=== PATIENT | female | born 1985 | race Caucasian/White ===

== ENCOUNTER 2020-05-17 14:27 | Inpatient (IN) | payer MEDICAID ==
[~2020-05-17] VITALS: Ht 172.7 cm; Wt 68.0 kg
--- NOTE | 2020-05-17 14:30 | NUR ---
Patient brought in by RA 88, patient picked up by MARCELO for "rolling around on the street"
[2020-05-17] MEDS ORDERED: OLANZAPINE 10 MG VIAL IM ONE ×2 (14:45→14:48)
--- NOTE | 2020-05-17 14:55 | NUR ---
NURSING STEAM BOX HAND NOTIFIED FOR NEED OF 1:1 SITTER.
--- NOTE | 2020-05-17 15:00 | NUR ---
Covid swab and urine sample sent to lab at this time
--- NOTE | 2020-05-17 15:00 | NUR ---
PT PLACED ON 5150 HOLD BY [employer] (ZAID,DULCE).
[2020-05-17 15:01] LABS: BASOPHILS % (AUTO) 0.2 % (0.0-2.0); EOSINOPHILS % (AUTO) 0.3 % (0.0-7.0); HEMATOCRIT 34.5 % (31.2-41.9); HEMOGLOBIN 11.8 g/dL (10.9-14.3); MEAN CORPUSCULAR HEMOGLOBIN 34.1 uug (24.7-32.8); MEAN CORPUSCULAR HGB CONC 34 g/dL (32.3-35.6); MEAN CORPUSCULAR VOLUME 99.5 fL (75.5-95.3); MONOCYTES # (AUTO) 0.5 K/uL (2.0-10.0); MONOCYTES % (AUTO) 6.7 % (0.0-11.0); NEUTROPHILS # (AUTO) 6.2 K/uL (1.8-8.9); NEUTROPHILS % (AUTO) 79.8 % (38.5-71.5); PLATELET COUNT (AUTO) 103 K/uL (179-408); RED BLOOD CELL COUNT(AUTO) 3.47 MIL/uL (3.63-4.92); WHITE BLOOD COUNT (AUTO) 7.7 K/uL (3.8-11.8)
[2020-05-17 15:07] LABS: ETHANOL < 3 MG/DL (0-0)
[2020-05-17 15:11] LABS: ALANINE AMINOTRANSFERASE 52 U/L (14-59); ALKALINE PHOSPHATASE 55 U/L (50-136); ASPARTATE AMINOTRANSFERASE 54 U/L (15-37); BILIRUBIN,DIRECT 0.2 mg/dL (0.0-0.2); BILIRUBIN,TOTAL 0.5 mg/dL (0.2-1.0); CARBON DIOXIDE 27 mmol/L (21-32); CHLORIDE 103 mmol/L (98-107); CREATININE 1.1 mg/dL (0.6-1.3); GLUCOSE 151 mg/dL (74-106); TOTAL PROTEIN, SERUM 7.5 g/dL (6.4-8.2); UREA NITROGEN, BLOOD 14 mg/dL (7-18)
[2020-05-17 15:12] LABS: ACETAMINOPHEN < 2.0 ug/mL (10-30)
[2020-05-17 15:12] LABS: *BLOOD, URINE NEGATIVE (NEGATIVE); *COLOR,URINE YELLOW (YELLOW); *KETONES,URINE 1+ (NEGATIVE); LEUKOCYTE ESTERASE ,URINE NEGATIVE (NEGATIVE); NITRITE, URINE NEGATIVE (NEGATIVE); UGLUCOSE NEGATIVE (NEGATIVE)
[2020-05-17 15:14] LABS: POTASSIUM 2.5 mmol/L (3.5-5.1)
[2020-05-17] MEDS ORDERED: POTASSIUM CHLORIDE 50 ML IV SCH (15:15)
[2020-05-17] MEDS ORDERED: POTASSIUM CHLORIDE 20 MEQ TAB.PRT.SR PO ONE (15:15)
[2020-05-17 15:18] LABS: THYROID STIMULATING HORMONE 0.812 mIU/mL (0.358-3.740)
[2020-05-17 15:19] LABS: *BILIRUBIN,URIN 1+ (NEGATIVE)
[2020-05-17 15:22] LABS: *AMPHETAMINE, URINE NEGATIVE (NEGATIVE); *CANNABINOID, URINE NEGATIVE (NEGATIVE); *COCCAINE, URINE NEGATIVE (NEGATIVE); *OPIATE, URINE POSITIVE (NEGATIVE); *PHENCYCLIDINE SCREEN,URINE NEGATIVE (NEGATIVE)
[2020-05-17 15:25] LABS: *CLARITY,URINE HAZY (CLEAR); BACTERIA,URINE FEW /HPF (NONE SEEN); SQUAMOUS EPITHELIAL CELL,UR FEW /HPF (NONE SEEN)
[2020-05-17 15:26] LABS: URINE AMORPHOUS PHOSPHATES MODERATE /HPF
[2020-05-17] MEDS ORDERED: POTASSIUM CHLORIDE 50 ML ONE (15:40)
[2020-05-17] MEDS ORDERED: POTASSIUM CHLORIDE 20 MEQ TAB.PRT.SR ONE (15:40)
--- NOTE | 2020-05-17 16:14 | NUR ---
potassium IV infusion stopped at 1614
[2020-05-17] MEDS: MAGNESIUM SULFATE/D5W 100 ML IV SCH ×2 (16:44→19:30)
[2020-05-17] MEDS ORDERED: MAGNESIUM SULFATE/D5W 200 ML ONE (16:50)
--- NOTE | 2020-05-17 18:04 | NUR ---
first bag of IV magnesium in progress, endorsed to Mikala, patient going to room 314 under the care of MD Alves, transfered via wheelchair
--- NOTE | 2020-05-17 18:10 | NUR ---
Received patient in wheelchair, Awake alert and oriented times 4. Patient is Hong Konger speaking but understands some Afghan. Patient is on room air. Patient belongings list completed, signed and placed in chart. No sign of distress noted. Patient states she is homeless. Skin is intact. Patient has 1:1 sitter. Safety precautions are in place. Will endorse to oncoming nurse.
[2020-05-17 18:38] VITALS: BP 118/78
[2020-05-17 19:30] VITALS: BP 107/74
--- NOTE | 2020-05-17 20:22 | NUR ---
Patient in bed .AALOx4.Calm and pleasant .On RA.Denies pain. No s/s of distress noted. Denies SI or hurting others.Ambulates to bathroom. Iv on AC 20 g with 2nd bag of magnesium IV running well .No a/r noted.1:1 sitter at bedside for safety. MD Alves made aware of patient's admission with new order given ,noted and carried out.VSS
[2020-05-17] MEDS ORDERED: POTASSIUM CHLORIDE IV SCH (20:30)
[2020-05-17] MEDS ORDERED: LACTATED RINGERS IV SCH (20:30)
[2020-05-17] MEDS ORDERED: OLANZAPINE 10 MG VIAL IM PRN (20:30)
[2020-05-17] MEDS ORDERED: ONDANSETRON 4 MG/2 ML VIAL IV PRN (20:30)
[2020-05-17] MEDS ORDERED: HYDROCODONE/APAP 10-325 MG TABLET PO PRN (20:30)
[2020-05-17] MEDS: POTASSIUM CHLORIDE 40 MEQ in IV NS 1000 ML 1,000 ML IV PRN (22:38)
[2020-05-18 04:25] VITALS: BP 106/72
--- NOTE | 2020-05-18 06:58 | NUR ---
Patient slept well.No Bizarre behavior through out the shift.IVF Ns with KCL 40 meq running well at 100 ml/hr.Tolerated well.1:1 remain at bedside.All needs anticipated and met accordingly.VSS.Endorsed to oncoming shift.
[2020-05-18 07:17] LABS: BILIRUBIN,TOTAL 0.5 mg/dL (0.2-1.0); CREATININE 0.8 mg/dL (0.6-1.3); PHOSPHOROUS 3.8 mg/dL (2.5-4.9); POTASSIUM 3.4 mmol/L (3.5-5.1); TOTAL PROTEIN, SERUM 5.7 g/dL (6.4-8.2)
[2020-05-18] MEDS: POTASSIUM CHLORIDE 40 MEQ in IV NS 1000 ML 1,000 ML IV PRN (09:08)
[2020-05-18 12:10] VITALS: BP 131/65
[2020-05-18 15:38] VITALS: BP 109/65
[2020-05-18] MEDS: HYDROCODONE/APAP 10-325 MG TABLET PO PRN ×2 (15:52→20:20)
[2020-05-18 20:04] VITALS: BP 116/71
[2020-05-19 04:16] VITALS: BP 101/47
--- NOTE | 2020-05-19 07:02 | NUR ---
End of Shift Report: Patient is AOx4, no bizarre behavior throughout the shift, no acute distress, vital signs stable. Patient slept most of the night. 1:1 remain at bedside. All needs anticipated and met accordingly. Will endorse to oncoming shift.
--- NOTE | 2020-05-19 10:54 | NUR ---
SW Consult: Patient is a 35-year-old female who was brought to [facility] on 05/18/19. She is on a 5150 hold for running into traffic. Patient appeared alert and oriented x4 (self, situation, place, time). Patient appeared with euthymic mood. Patient appeared anxious about her current situation. Patient was cooperative while this SW was conducting the assessment. Patient currently has a work visa. Patient has no family and reported she only has friends. Patient has various sources of income; however, specifics were not disclosed. Patient was able to state why she was brought to the hospital. She stated she has active auditory hallucinations, the voices are telling her to run into traffic. She expressed she has been diagnosed with bipolar disorder and anxiety for many years. This SW assessed for SI. Patient currently denies suicidal ideation. Patient reported her psychiatrist doctor Fletcher ([phone]) has prescribed her Zyprexa 5mg Daily and Ativan 1mg. Patient reported she has been off her anti-psychotic medications for about a year. Patient expressed she is a substance abuser and is in AA program, unable to give more information. She has been in and out of hospitals: [facility] and [facility]. This SW conducted brief substance abuse intervention and patient reported that she drinks alcohol daily and has been drinking on and off. This SW will provide substance abuse resources: [facility] ([phone]), [facility] ([phone]), and [facility] ([phone]). This SW assessed for patients current living situation she shared she lives at [address] [place] [address]. She expressed that she lives with her friend Vivienne ([phone]) who financially helps patient. She shared she was at a SNF around December-January 2020 in [place], she was unable to recall SNFs name. Patient reported she would want to go back home upon discharge located at [address] [place] [address]. This SW provided mental health resources, substance abuse resources, and medical clinic resources if needed. This SW provided resources for Mental Health Referrals, [facility] Crisis Line, ( ), National Suicide Prevention Lifeline; ( ), [facility] Substance Abuse Helpline, ( ), [facility], ([phone]), and [facility] ([phone]). [facility] provided health care clinics: [facility]; ([phone]), [facility]; ([phone]), and [facility]; ([phone]).
--- NOTE | 2020-05-19 11:36 | NUR ---
SW Doctor Contact: This SW contacted Dr. Melchor to verify when he will see patient. Dr. Melchor stated he will see patient during the afternoon.
--- NOTE | 2020-05-19 11:46 | NUR ---
Investigator Fraud note: Per patient's face sheet, patient is self-pay. This SW contacted [employer] patient uniforms sales representative Jada Lara, , who stated that patient had already been screened for [employer] benefits. Jada stated that patient did have active [employer]. Jada stated that financial counselor/admissions had been informed.
[2020-05-19 12:00] VITALS: BP 125/69
--- NOTE | 2020-05-19 12:01 | NUR ---
SW Follow-up Note: SW went to meet patient upstairs because patient was asking for additional resources. Patient expressed to this SW if she were to go back to her friends marcello Palafox ([phone]) located at [address] [place] [address], can she get additional resources for alf. This SW gave pt alf programs: [facility]; ([phone]), [facility] at [facility]; ([phone]), and [facility]; ([phone]). Patient signed the homeless waiver upon discharge and a copy was placed in the chart. Homeless resources were provided and include 211 information line for shelters and homeless resources. A copy of all resources given to patient was also placed in the chart. This SW notified charge nurse.
--- NOTE | 2020-05-19 12:07 | NUR ---
SW Note: Nurse Rebeka reported to this SW that patient reported on 05/18/2020 that she feels unsafe to go back home with Vivienne ([phone]). This SW and Rebeka met with patient and patient stated "No, my brain has been on and off and it is not functioning well". She reported "I feel safe going back home with Vivienne". Patient was adamant about returning back home with Vivienne. This SW created a safety plan for patient. Patient is aware to call 911 if she is in a dangerous situation, she also reported she has a plumbing manager named Julian ([phone]) who is involved in her care. She stated she has other friends as support as well.
--- NOTE | 2020-05-19 14:17 | NUR ---
Initial Discharge Plan: Patient wants to be discharged back home located at [address] [place] [address] and she stated that her friend Vivienne ([phone]) will mushroom picker patient once patient is ready for discharge. This SW had patient sign homeless waiver form and gave resources.
--- NOTE | 2020-05-19 15:17 | NUR ---
Manager Ob notes: This SW checked in with NICOLE Staley regarding discharge plans. It was agreed that once patient is seen and cleared by Dr. Melchor today, that patient will be discharged home. Rebeka informed by this SW that patient's friend would be picking patient up. See previous SS note for contact information for friend.
[2020-05-19 16:00] VITALS: BP 118/78
[2020-05-19 19:26] VITALS: BP 122/72
--- NOTE | 2020-05-19 20:30 | NUR ---
DR. PALOMARES CAME TO SEE PATIENT AND DISCONTINUED HOLD. WAITING FOR DR. ADAMS TO GIVE "DISCHARGE ORDER." ALL NEEDS ATTENDED. WILL CONTINUE TO MONITOR AND ASSESS.
--- NOTE | 2020-05-19 21:00 | NUR ---
DISCHARGE ORDER IN EMAR FROM DR. ADAMS. PATIENT IS READY TO BE DISCHARGED. DENIES PAIN. DENIES ANY THOUGHTS OR FEELINGS OF SI. VSS. PATIENT GIVEN DISCHARGE INSTRUCTIONS AND RX. ALL NEEDS ATTENDED. WILL CONTINUE TO MONITOR AND ASSESS.
--- NOTE | 2020-05-19 21:10 | NUR ---
PATIENT DISCHARGED HOME. PICKED UP BY PRIVATE CAR. PATIENT LEFT IN STABLE CONDITION.
== END 2020-05-19 21:15 | disposition home or self-care (01) | DRG 425 ==
LOC: ER 14:30 → TELE3 17:52 → MEDSURG3 20:14
PROVIDERS: ADMIT Nurse Practitioner Acute Care; ATTEND Nurse Practitioner Acute Care
DX: E87.6 Hypokalemia (principal); D69.6 Thrombocytopenia, unspecified; E83.42 Hypomagnesemia; F17.210 Nicotine dependence, cigarettes, uncomplicated; Z20.822 Contact with and (suspected) exposure to COVID-19; F29 Unspecified psychosis not due to a substance or known physiological condition; F11.90 Opioid use, unspecified, uncomplicated; F25.0 Schizoaffective disorder, bipolar type
CPT/HCPCS: 36415; 83735; 84100; 84443; 85025; 93005; A4663; G0378; G0480; J2358; J3475; J3480; J7030; J7120